=== PATIENT | female | born 2000 | race Caucasian/White ===

== ENCOUNTER 2023-08-01 21:01 | Emergency (ER) | payer BC, OTHER, SELFPAY ==
[2023-08-01 21:03] VITALS: BP 109/64
--- NOTE | 2023-08-01 22:19 | ED.GENMED ---
History of Present Illness
General
Chief Complaint: Abdominal Symptoms
Time Seen by Provider: 08/01/23 22:18
Travel History
Have you had any contact with someone who has COVID-19?: No
Do you have any symptoms of coronavirus? Fever > 100 degrees, chills, cough, shortness of breath, sore throat, loss of taste or smell, muscle aches, or headache?: No
History of Present Illness
History of Present Illness:
HPI: The patient has a history of gastroparesis diagnosed a few years ago as an outpatient at [facility]. She does not currently see an adult GI doctor and does not take anything for gastroparesis. Over the past couple of weeks, she has been having
nausea with vomiting. She has no constipation. She has chronic abdominal pain with any different today. She has an associated headache.
EXAM:
GENERAL: Well appearing in no distress
HEENT: Moist oral mucosa
CARDIOVASCULAR: No murmurs, normal heart rate and rhythm, No chest wall tenderness
PULMONARY: No respiratory distress, breath sounds are clear and equal
ABDOMEN: Soft with no peritoneal signs, no tenderness
NEUROLOGIC: Excellent strength all extremities, no coordination deficits
PSYCHIATRIC: Appropriate mental status, normal insight and judgement
EXTREMITIES: Nontender, no edema, moves all extremities equally
SKIN: No rash, no lesions
ED COURSE:
10:25 PM: I initially evaluated patient
NUMBER AND COMPLEXITY OF PROBLEMS ADDRESSED AT THE ENCOUNTER
� Chronic conditions affecting care: Mild autism, GERD, gastroparesis
� Acute Exacerbation and/or Progression of Chronic Illness: This is an acute exacerbation of chronic gastroparesis
� Differential Diagnosis includes: Exacerbation of gastroparesis, pancreatitis, hepatobiliary disease, GERD, anxiety
AMOUNT AND/OR COMPLEXITY OF DATA TO BE REVIEWED AND ANALYZED
� I performed an independent evaluation of and my interpretation is:
EKG:
CT:
X-rays:
Laboratory Studies: CBC including white count is normal, hCG is negative, CMP unremarkable
Other:
� Review of other/old records: The patient was hospitalized with pneumonia when she was a child
� Clinical information was obtained by an independent historian: I spoke to mother at bedside
� Prescriptions/Medications Considered but not given:
� Further testing considered but not performed: Considered CT imaging however the patient has no significant abdominal tenderness and the pain that she is experiencing is mild and chronic and unchanged from prior
RISK OF COMPLICATIONS AND/OR MORBIDITY OR MORTALITY OF PATIENT MANAGEMENT
� Social determinants of health affecting care: Lives at home
� Discussion with other providers: Contacted GI office to arrange close follow-up
� Escalation of care including admission/observation vs risk of discharge considered: The patient tells me she feels dehydrated. Will give IV fluids. The patient is on Vraylar and Zoloft. I did review the interactions with
Reglan however I feel that Reglan could help her. We agree would be reasonable to give a one-time dose in the ED along with the fluids. On reassessment, at 11:30 PM, the patient appears fairly comfortable.
Past History
Past History
ED Past Medical History: None
Phy Exam
Physical Exam
Physical Exam:
See HPI
Course
Orders/Labs/Results
Orders:
Orders
08/01/23 22:27
0.9% Sodium Chloride 1000 ml [Nss] 1,000 ml IV BOLUS
Diphenhydramine [Benadryl] 25 mg IV NOW STA
Metoclopramide [Reglan] 10 mg IV NOW STA
Test Result ONCE
08/01/23 22:31
Complete Blood Count/With Diff Urgent
Comprehensive Metabolic Panel Urgent
HCG, Serum Qualitative Screen Urgent
Lipase Urgent
Abnormal Lab Results
08/01/23
22:31
MCH 31.4 H pg
(27.0-31.0)
ALT 45 H U/L
(0-35)
Total Protein 8.5 H g/dl
(6.3-8.2)
Albumin 5.1 H g/dl
(3.5-5.0)
08/01/23 22:31
08/01/23 22:31
Vital Signs
Initial and Last Documented VS:
Initial Vital Signs
Temp Pulse Resp BP Pulse Ox
98.1 F 61 18 109/64 100
08/01/23 21:03 08/01/23 21:03 08/01/23 21:03 08/01/23 21:03 08/01/23 21:03
Last Documented Vital Signs
Temp Pulse Resp BP Pulse Ox
98.1 F 67 18 104/51 98
08/01/23 21:03 08/01/23 22:50 08/01/23 22:50 08/01/23 22:50 08/01/23 22:50
*Critical Care Note
Total Time (30-74mins, 75-104mins- exclusive of procedures): Not Applicable
ED Attending Note
-
Portions of this chart may have been created with voice recognition software.� Occasional wrong word or��sound alike� substitutions may have occurred due to the inherent limitations of voice recognition software.
Discharge Plan
Departure
Prescriptions:
No Action
omeprazole 20 MG capsule,delayed release(DR/EC)
20 mg PO DAILY
clindamycin HCl 300 MG capsule
1 cap PO TID Qty: 21 0RF
Rx Instructions:
Take one capsule three times per day for 7 days.
Referrals:
Jerrod Cabrera MD [Family Provider] -
Interventions
Interventions:
*Risk Screen - Suicide Last Done: 08/01/23 21:55
*General Assessment Last Done: 08/01/23 21:55
*Neglect/Abuse Screening Last Done: 08/01/23 21:55
*ED COVID-19 Vaccine History Last Done: 08/01/23 21:55
OB-Lnzepa-Xwkpqefasn Assessment Last Done: 08/01/23 21:55
[2023-08-01 22:31] VITALS: BMI 23.4
[2023-08-01] MEDS: REGLAN 10 MG IV (22:31)
[2023-08-01] MEDS: BENADRYL 25 MG IV (22:31)
[2023-08-01] MEDS: NSS 1000 IV (22:32)
[2023-08-01 22:50] VITALS: BP 104/51
[2023-08-01 22:52] LABS: % Basophils 0.1 % (0-2); % Eosinophils 0.6 % (0-6); % Immature Granulocytes 0.5 % (0-0.5); % Lymphocytes 33.5 % (20.5-51.1); % Monocytes 4.8 % (1.7-9.3); % Neutrophils 60.5 % (42.2-75.2); Absolute Eosinophils 0.1 10^3/uL (0-0.7); Absolute Lymphocytes 2.9 10^3/uL (1.2-3.4); Absolute Monocytes 0.4 10^3/uL (0.1-0.6); Absolute Neutrophils 5.3 10^3/uL (1.4-6.5); Hematocrit 37.9 % (37.0-47.0); Hemoglobin 13.2 g/dL (12.0-16.0); Mean Corp Hgb Conc. 34.8 g/dL (33.0-37.0); Mean Corpuscular Hgb 31.4 pg (27.0-31.0); Mean Corpuscular Volume 90.2 fL (81.0-99.0); Nucleated Red Blood Cells % 0 %; Platelet Count 311 10^3/uL (130-400); Red Cell Dist. Width 12.1 % (11.5-14.5); White Blood Cell Count 8.7 10^3/uL (4.8-10.8)
[2023-08-01 23:02] LABS: HCG, Serum Qualitative Screen Negative
[2023-08-01 23:06] LABS: ALT (SGPT) 45 U/L (0-35); AST (SGOT) 31 U/L (14-36); Albumin 5.1 g/dl (3.5-5.0); Alkaline Phosphatase 63 U/L (38-126); Blood Urea Nitrogen 8 mg/dl (7-17); Calcium 10.2 mg/dl (8.4-10.2); Carbon Dioxide 30 mmol/L (22-30); Chloride 102 mmol/L (98-107); Estimated Creatinine Clearance > 125 ml/min; Glucose 86 mg/dl (70-99); Lipase 59 U/L (23-300); Potassium 4.3 mmol/L (3.5-5.1); Sodium 137 mmol/L (135-145); Total Bilirubin 1.1 mg/dl (0.2-1.3); Total Protein 8.5 g/dl (6.3-8.2); eGFR > 60.00
== END 2023-08-02 00:10 | disposition home or self-care (01) ==
LOC: EMR 21:01
PROVIDERS: EMERGENCY PHYSICIAN Emergency Medicine; FAMILY PHYSICIAN Internal Medicine
DX: K31.84 Gastroparesis (principal); F84.0 Autistic disorder; K21.9 Gastro-esophageal reflux disease without esophagitis; G89.29 Other chronic pain
CPT/HCPCS: 99283; 96374; 96375; 96361; 80053; 83690; 84703; 85025

== ENCOUNTER 2024-03-22 17:40 | Emergency (ER) | payer BC, OTHER, SELFPAY ==
[2024-03-22 17:47] VITALS: BP 118/71
[2024-03-22 18:19] LABS: % Basophils 0.7 % (0-2); % Eosinophils 0.9 % (0-6); % Immature Granulocytes 0.3 % (0-0.5); % Lymphocytes 47.7 % (20.5-51.1); % Monocytes 6.6 % (1.7-9.3); % Neutrophils 43.8 % (42.2-75.2); Absolute Basophils 0.1 10^3/uL (0-0.2); Absolute Eosinophils 0.1 10^3/uL (0-0.7); Absolute Lymphocytes 3.3 10^3/uL (1.2-3.4); Absolute Monocytes 0.5 10^3/uL (0.1-0.6); Absolute Neutrophils 3.1 10^3/uL (1.4-6.5); Hematocrit 39.5 % (37.0-47.0); Hemoglobin 13.2 g/dL (12.0-16.0); Mean Corp Hgb Conc. 33.4 g/dL (33.0-37.0); Mean Corpuscular Hgb 30.7 pg (27.0-31.0); Mean Corpuscular Volume 91.9 fL (81.0-99.0); Mean Platelet Volume 9.6 fL (7.4-10.4); Nucleated Red Blood Cells % 0 %; Platelet Count 271 10^3/uL (130-400); Red Cell Dist. Width 12.8 % (11.5-14.5)
[2024-03-22 18:23] LABS: Urine Albumin Trace (Neg - Trace); Urine Bilirubin Negative (Negative); Urine Character Clear (Clear); Urine Color Yellow; Urine Glucose Negative (Negative); Urine Ketone Negative (Negative); Urine Leukocyte Negative (Negative); Urine Nitrite Negative (Negative); Urine Occult Blood Negative (Negative); Urine Specific Gravity 1.015 (<1.030); Urine Urobilinogen Negative (Neg - 1+)
[2024-03-22 18:27] LABS: HCG, Serum Qualitative Screen Negative
[2024-03-22 18:32] LABS: ALT (SGPT) 17 U/L (0-35); AST (SGOT) 22 U/L (14-36); Alkaline Phosphatase 72 U/L (38-126); Blood Urea Nitrogen 16 mg/dl (7-17); Calcium 9.8 mg/dl (8.4-10.2); Carbon Dioxide 25 mmol/L (22-30); Chloride 103 mmol/L (98-107); Glucose 87 mg/dl (70-99); Potassium 4.4 mmol/L (3.5-5.1); Sodium 142 mmol/L (135-145); Total Bilirubin 0.8 mg/dl (0.2-1.3); Total Protein 7.9 g/dl (6.3-8.2); eGFR > 60.00
[2024-03-22 19:48] VITALS: BP 101/62
--- NOTE | 2024-03-22 21:10 | ED.GENMED ---
History of Present Illness
General
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
Source: patient
Time Seen by Provider: 03/22/24 20:58
History of Present Illness
History of Present Illness:
23yoF with a history of gastroparesis, hypothyroidism, and anxiety presenting with her mother for evaluation of pelvic pain. Patient [facility] [place] She had immediate pain after the insertion with
nausea and vomiting so they removed the IUD about 30 minutes-1 hour after insertion. She has been having ongoing sharp pelvic pain since that time. She is worried because she saw a 'red chunk' removed with the IUD and she wants to make sure
everything is okay. The OBGYN will apparently not call her back so she decided to come to the ED. She also reports an increase in white vaginal discharge. She was checked for STDs 2 weeks ago and testing was negative. She denies any fevers or
dysuria.
Past History
Past History
ED Past Medical History: None
Phy Exam
General Physical Exam
General Presentation: well appearing and no apparent distress
General age: appears stated age
General Skin: warm and dry
General Habitus: normal
General Mental: alert
ENT Exam
ENT Exam: normocephalic
Pulmonary Exam
Pulmonary Exam: no respiratory distress
Gastrointestinal Exam
Gastrointestinal Exam: soft, non distended and other (+Mild tenderness to suprapubic and LLQ regions. No guarding or rebound.)
Genitourinary Exam Female
Exam Female: no bleeding, no CMT, vaginal discharge and other (Mild to moderate amount of thin white vaginal discharge. Cervix appears normal. No friability or bleeding noted. No CMT.)
Pillow Coma Scale
Eye Opening: Spontaneous
Verbal Response: Oriented
Motor Response: Obeys Commands
GCS Total Score: 15
Skin Exam
Skin Exam: normal color and warm/dry
Psychiatric Exam
Psychiatric Exam: normal mood/affect
Course
Orders/Labs/Results
Orders:
Orders
03/22/24 17:56
Test Result ONCE
03/22/24 18:05
Complete Blood Count/With Diff Urgent
Comprehensive Metabolic Panel Urgent
HCG, Serum Qualitative Screen Urgent
Urinalysis Reflex To Culture Urgent
Date Specimen was Collected: 03/22/24
Time Specimen was Collected: 17:56
03/22/24 21:17
Pelvis & Transvaginal US [US Pelvis W Transvag Combined] Urgent
Comment:
Reason For Exam: Pelvic pain after IUD insertion/removal
03/22/24 18:05
03/22/24 18:05
Vital Signs
Initial and Last Documented VS:
Initial Vital Signs
Temp Pulse Resp BP Pulse Ox
98.0 F 74 16 118/71 98
03/22/24 17:47 03/22/24 17:47 03/22/24 17:47 03/22/24 17:47 03/22/24 17:47
Last Documented Vital Signs
Temp Pulse Resp BP Pulse Ox
98.0 F 60 16 107/65 100
03/22/24 17:47 03/22/24 21:15 03/22/24 21:15 03/22/24 21:15 03/22/24 21:15
MDM/Problems Addressed
Differential Diagnosis Includes:
23yoF here with pelvic pain since having an IUD inserted on 03/11. IUD was removed within 1 hour of insertion due to pain. Also having some vaginal discharge. STD testing 2 weeks ago was reportedly negative. No fevers. VSS. She is well appearing in
no distress. No signs of peritonitis on abdominal exam. White vaginal discharge noted on pelvic exam. Cervix otherwise appears normal and there is no cervical motion tenderness to suggest pelvic inflammatory disease.
Initial ED plan: CBC, CMP, HCG, and UA obtained in triage. Labs unremarkable including normal white count. HCG negative. UA bland without signs of infection. Will obtain pelvic ultrasound to ensure there is no evidence of perforation.
*Critical Care Note
Total Time (30-74mins, 75-104mins- exclusive of procedures): Not Applicable
Update Note
Update Note:
TVUS is negative for acute findings. Patient was provided with reassurance. She was advised to f/u with OBGYN for outpatient reassessment. ED return precautions discussed. She expressed understanding and is agreeable to plan. She was discharged in
stable condition.
ED Attending Note
-
Portions of this chart may have been created with voice recognition software.� Occasional wrong word or��sound alike� substitutions may have occurred due to the inherent limitations of voice recognition software.
Discharge Plan
Departure
Patient Disposition: Home (Routine Discharge)
Date of Disposition: 03/22/24
Time of Disposition: 23:52
Patient with high blood pressure during this ER visit?: No
Discharge Problem:
Pelvic pain
Instructions: Pelvic Pain (DC)
Prescriptions:
No Action
omeprazole 20 MG capsule,delayed release(DR/EC)
20 mg PO DAILY
clindamycin HCl 300 MG capsule
1 cap PO TID Qty: 21 0RF
Rx Instructions:
Take one capsule three times per day for 7 days.
Referrals:
Jerrod Cabrera MD [Family Provider] -
Jael Soni MD [Active] -
Activity Restrictions/Additional Instructions:
Please call tomorrow to schedule a follow-up with OBGYN. Return to the ER with any new or worsening symptoms.
Interventions
Interventions:
*Risk Screen - Suicide Last Done: 03/22/24 17:47
*General Assessment Last Done: 03/22/24 21:11
*Neglect/Abuse Screening Last Done: 03/22/24 17:47
ED- Fall Risk Assessment Last Done: 03/22/24 21:11
*ED COVID-19 Vaccine History Last Done: 03/22/24 21:11
*Nursing Disposition Last Done: 03/22/24 23:57
ED-Female Genitourinary Assessment Last Done: 03/22/24 21:14
Discharge Date and Time
Discharge Date/Time: 03/22/24 23:58
Print Language: AUSTRIAN
[2024-03-22 21:11] VITALS: BMI 22.5
[2024-03-22 21:15] VITALS: BP 107/65
== END 2024-03-22 23:58 | disposition home or self-care (01) ==
LOC: EMR 17:40
PROVIDERS: Emergency Medicine; EMERGENCY PHYSICIAN Emergency Medicine; FAMILY PHYSICIAN Internal Medicine
DX: R10.2 Pelvic and perineal pain (principal); N89.8 Other specified noninflammatory disorders of vagina; E03.9 Hypothyroidism, unspecified
CPT/HCPCS: 99284; 76830; 76856; 80053; 81003; 84703; 85025

== ENCOUNTER 2024-10-07 09:24 | Emergency (ER) | payer BC, OTHER, SELFPAY ==
[2024-10-07] VITALS (8 sets, daily range): BP systolic 95–124; BP diastolic 70–92; BMI 21.8
--- NOTE | 2024-10-07 10:01 | ED.GENMED ---
History of Present Illness
General
Chief Complaint: Abdominal Pain
Source: patient and family
Exam Limitations: none
Time Seen by Provider: 10/07/24 09:35
Nursing documentation reviewed up to this point in time: agreed with
History of Present Illness
History of Present Illness:
24-year-old female with past medical history of bipolar PTSD gastroparesis presents to the ER for evaluation. Patient has been hospitalized at [facility] for anxiety and PTSD. She however has had abdominal pain intermittently for
the past 7 days and has had 2 episodes where she apparently vomited some blood. She was seen at [facility] yesterday sent there from [place]. While there she received fluids and had blood work but had no imaging. She was dx with UTI and is on
Macrobid. Prior to yesterday no recent antibiotics.
She reports in addition to that she has been constipated and yesterday took mag citrate and laxatives and also manually disimpacted herself. This morning she complains of now diarrhea nausea and abdominal pain. She denies epigastric burning. She
reports this does not feel like reflux.
She is a patient of GI here at [facility] for gastroparesis.
She is prescribed medical marijuana, her last use 1 week ago. She reports this pain something that she has never had. Her friend did mention to her the possibility of cannabinoid hyperemesis syndrome.
Past History
Past History
ED Past Medical History: None
Phy Exam
General Physical Exam
General Presentation: no apparent distress
General age: appears stated age
General Skin: warm and dry
General Habitus: normal
General Mental: alert
General Hydration: dry mucous membranes
Cardiovascular Exam
Cardiovascular Exam: regular rate/rhythm, no murmur and normal peripheral pulses
Pulmonary Exam
Pulmonary Exam: lungs clear and no respiratory distress
Gastrointestinal Exam
Gastrointestinal Exam: soft and other (Nonspecific tenderness + BS )
Neurological Exam
Neurological Exam: alert and oriented x3
Musculoskeletal Exam
Musculoskeletal Exam: full ROM
Skin Exam
Skin Exam: normal color and warm/dry
Psychiatric Exam
Psychiatric Exam: normal mood/affect
Course
Orders/Labs/Results
Orders:
Orders
10/07/24 09:55
Ketorolac [Toradol] 15 mg IV NOW STA
10/07/24 09:59
0.9% Sodium Chloride 1000 ml [Nss] 1,000 ml IV BOLUS
10/07/24 10:01
Dicyclomine HCl [Bentyl] 20 mg IM NOW STA
10/07/24 10:14
Complete Blood Count/With Diff Urgent
Comprehensive Metabolic Panel Urgent
HCG, Serum Qualitative Screen Urgent
Comment: ADD ON
Lipase Urgent
Urinalysis Reflex To Culture Urgent
Date Specimen was Collected: 10/07/24
Time Specimen was Collected: 10:04
Urine Microscopic Reflex Cult Urgent
Urine Culture Urgent
LAVON Source: U
Specimen Description:
Date Specimen was Collected: 10/07/24
Time Specimen was Collected: 10:04
10/07/24 10:38
Add On- LAB Urgent
Tests Added?: hcg quantitative
10/07/24 10:55
Ketorolac [Toradol] 15 mg IV NOW STA
10/07/24 10:59
CT Abd/pel W Iv And Oral Contr Urgent
Comment:
Reason For Exam: abd pain
Diphenhydramine [Benadryl] 25 mg IV NOW STA
Iohexol [Omnipaque] See Protocol PO NOW STA
Metoclopramide [Reglan] 10 mg IV NOW STA
10/07/24 11:06
Electrocardiogram (*1) Stat
Reason for Study: Other
Other Reason for Exam: chest pain
Cardiac Monitoring- Treatment ONCE
EKG- Treatment ONCE
Abnormal Lab Results
10/07/24
10:14
Chloride 109 H mmol/L
(98-107)
Carbon Dioxide 21 L mmol/L
(22-30)
Glucose 158 H mg/dl
(70-99)
Total Bilirubin 1.8 H mg/dl
(0.2-1.3)
Urine Ketones 3+ A
(Negative)
Leukocyte Esterase Rfl 1+ A
(Negative)
Urine Bacteria (Reflex) Many A
(Negative)
Urine Albumin (Reflex) 1+ A
(Neg - Trace)
10/07/24 10:14
10/07/24 10:14
Vital Signs
Initial and Last Documented VS:
Initial Vital Signs
Temp Pulse Resp BP Pulse Ox
97.5 F 71 16 95/80 100
10/07/24 09:27 10/07/24 09:27 10/07/24 09:27 10/07/24 09:27 10/07/24 09:27
Last Documented Vital Signs
Temp Pulse Resp BP Pulse Ox
97.5 F 70 25 124/78 99
10/07/24 09:27 10/07/24 15:45 10/07/24 15:45 10/07/24 13:00 10/07/24 12:30
MDM/Problems Addressed
Differential Diagnosis Includes:
Not limited to viral syndrome, gastroparesis, less likely appendicitis, colitis diverticulitis cannabinoid hyperemesis syndrome, UTI reflux
MDM/Problems Addressed:
As documented patient is a 24-year-old female with psychiatric history, PTSD depression anxiety presents for nausea vomiting she had diarrhea as well and abdominal pain. Patient was hospitalized at [place] however had vomiting and was seen at [facility] yesterday diagnosed with UTI. In addition patient reports he has been constipated and has taken laxatives and self disimpacted herself yesterday. She presents with abdominal pain nausea vomiting. She denies any fevers and is afebrile with
a normal white count nonspecific abdominal tenderness.
Patient was medicated with Bentyl for discomfort which did not relieve her symptoms are patient did have relief with Toradol. Patient was medicated with nausea medicine and given fluids. CAT scan was ordered initially with oral and IV contrast
however patient was not able to tolerate oral contrast and therefore CAT scan with IV was done only. No evidence of obstruction or free intraperitoneal air no gross evidence for bowel wall thickening no acute obvious appendicitis there is a small
amount of pelvic free fluid likely physiologic. There is incidental 5 mm cyst in the posterior lateral left kidney. Labs unremarkable
Patient has been able to drink small and of fluids here and a cracker. We did discuss the possibility of cannabinoid hyperemesis however this is not a definitive diagnosis. Patient last use a week ago.
She does have a chronic GI history and is followed by GI here at [facility] for gastroparesis. No acute findings on labs and she is stable for discharge home however I did review with mom and patient reports a close GI follow-up. I did contact GI
lead front desk agent who will speak with the physician to expedite appointment.
Patient is stable for discharge home.
*Radiology
Radiology exam reviewed: radiology read reviewed
*Pulse Oximetry
Patient hypoxic: no
*Critical Care Note
Total Time (30-74mins, 75-104mins- exclusive of procedures): Not Applicable
ED Attending Note
-
Portions of this chart may have been created with voice recognition software.� Occasional wrong word or��sound alike� substitutions may have occurred due to the inherent limitations of voice recognition software.
Discharge Plan
Departure
Patient Disposition: Home (Routine Discharge)
Date of Disposition: 10/07/24
Time of Disposition: 16:17
Patient with high blood pressure during this ER visit?: No
Condition: Fair
Covid-19: Not Applicable
Discharge Problem:
Abdominal pain, Nausea and vomiting
Instructions: Nausea and Vomiting, Adult (DC), Abdominal Pain
Prescriptions:
No Action
omeprazole 20 MG capsule,delayed release(DR/EC)
20 mg PO DAILY
clindamycin HCl 300 MG capsule
1 cap PO TID Qty: 21 0RF
Rx Instructions:
Take one capsule three times per day for 7 days.
Referrals:
Jerrod Cabrera MD [Family Provider] -
Sergio Hedrick MD [Active] -
Activity Restrictions/Additional Instructions:
As discussed please follow-up with your family doctor as well as GI. Clear fluids for the next 24 hours followed by bland solid foods. You may complete your antibiotics were previously prescribed for UTI.
In addition please have conversation with family doctor and/or GI as we did discuss the possibility of cannabinoid hyperemesis syndrome.
Your bilirubin was 1.8 which is slightly elevated had this rechecked by your family doctor or GI specialist
Return however to the if any worsening of symptoms.
Interventions
Interventions:
*Risk Screen - Suicide Last Done: 10/07/24 09:27
*General Assessment Last Done: 10/07/24 09:27
*Neglect/Abuse Screening Last Done: 10/07/24 09:27
*ED- Fall Risk Assessment Last Done: 10/07/24 09:38
ZQ-Ytiipg-Djyrcedbxe Assessment Last Done: 10/07/24 09:30
Discharge Date and Time
Print Language: KITTITIAN
[2024-10-07] MEDS: BENTYL 20 MG IM (10:05)
[2024-10-07] MEDS: NSS 1000 IV (10:07)
[2024-10-07 10:26] LABS: % Basophils 0.4 % (0-2); % Eosinophils 0.7 % (0-6); % Immature Granulocytes 0.3 % (0-0.5); % Lymphocytes 23.6 % (20.5-51.1); % Monocytes 4.3 % (1.7-9.3); % Neutrophils 70.7 % (42.2-75.2); Absolute Eosinophils 0.1 10^3/uL (0-0.7); Absolute Lymphocytes 1.8 10^3/uL (1.2-3.4); Absolute Monocytes 0.3 10^3/uL (0.1-0.6); Absolute Neutrophils 5.4 10^3/uL (1.4-6.5); Hemoglobin 13.5 g/dL (12.0-16.0); Mean Corp Hgb Conc. 33.8 g/dL (33.0-37.0); Mean Platelet Volume 10.1 fL (7.4-10.4); Nucleated Red Blood Cells % 0 %; Platelet Count 288 10^3/uL (130-400); Red Blood Cell Count 4.35 10^6/uL (4.20-5.40); Red Cell Dist. Width 12.5 % (11.5-14.5); White Blood Cell Count 7.6 10^3/uL (4.8-10.8)
[2024-10-07 10:39] LABS: ALT (SGPT) 18 U/L (0-35); AST (SGOT) 20 U/L (14-36); Albumin 4.4 g/dl (3.5-5.0); Alkaline Phosphatase 70 U/L (38-126); Blood Urea Nitrogen 13 mg/dl (7-17); Calcium 9.5 mg/dl (8.4-10.2); Carbon Dioxide 21 mmol/L (22-30); Chloride 109 mmol/L (98-107); Estimated Creatinine Clearance > 125 ml/min; Glucose 158 mg/dl (70-99); Lipase 65 U/L (23-300); Potassium 4.3 mmol/L (3.5-5.1); Sodium 140 mmol/L (135-145); Total Bilirubin 1.8 mg/dl (0.2-1.3); Total Protein 7.7 g/dl (6.3-8.2); eGFR > 60.00
[2024-10-07 10:43] LABS: Urine Albumin 1+ (Neg - Trace); Urine Bilirubin Negative (Negative); Urine Character Cloudy (Clear); Urine Color Yellow; Urine Glucose Negative (Negative); Urine Ketone 3+ (Negative); Urine Leukocyte 1+ (Negative); Urine Nitrite Negative (Negative); Urine Occult Blood Negative (Negative); Urine Specific Gravity 1.015 (<1.030); Urine Urobilinogen Negative (Neg - 1+)
[2024-10-07] MEDS: TORADOL 15 MG IV (10:57)
[2024-10-07 10:58] LABS: HCG, Serum Qualitative Screen Negative
[2024-10-07 11:05] LABS: Urine Bacteria Many (Negative); Urine Red Blood Cell 0-2 /HPF (0-2); Urine Squamous Cell 0-2 /LPF (Few); Urine White Cell 0-2 /HPF (0-5)
[2024-10-07] MEDS: REGLAN 10 MG IV (11:09)
[2024-10-07] MEDS: BENADRYL 25 MG IV (11:09)
[2024-10-07] MEDS: OMNIPAQUE 50 ML PO (11:35)
[2024-10-07 16:41] LABS: Glucose - Point of Care 105 mg/dl (70-99)
== END 2024-10-07 16:53 | disposition home or self-care (01) ==
LOC: EMR 09:24
PROVIDERS: Nurse Practitioner; EMERGENCY PHYSICIAN Emergency Medicine; FAMILY PHYSICIAN Internal Medicine
DX: R10.9 Unspecified abdominal pain (principal); K31.84 Gastroparesis; F31.9 Bipolar disorder, unspecified; F43.10 Post-traumatic stress disorder, unspecified; F41.9 Anxiety disorder, unspecified; K59.00 Constipation, unspecified; Z87.440 Personal history of urinary (tract) infections
CPT/HCPCS: 99284; 96374; 96375; 96376; 96361; 74177; 80053; 81003; 81015; 82962; 83690; 84703; 85025; 87045; 87046; 87086; 87427; 93005; Q9967

== ENCOUNTER 2025-05-11 12:33 | Emergency (ER) | payer BC, OTHER, SELFPAY ==
[2025-05-11 12:35] VITALS: BP 109/73
[2025-05-11 12:58] LABS: Hematocrit 38.9 % (37.0-47.0); Hemoglobin 13.1 g/dL (12.0-16.0); Mean Corp Hgb Conc. 33.7 g/dL (33.0-37.0); Mean Corpuscular Volume 91.5 fL (81.0-99.0); Nucleated Red Blood Cells % 0 %; Platelet Count 248 10^3/uL (130-400); Red Cell Dist. Width 13.6 % (11.5-14.5)
[2025-05-11 13:00] LABS: Urine Character Clear (Clear)
[2025-05-11 13:11] LABS: HCG, Serum Qualitative Screen Negative
[2025-05-11 13:14] LABS: ALT (SGPT) 20 U/L (0-35); AST (SGOT) 27 U/L (14-36); Albumin 5.1 g/dl (3.5-5.0); Alkaline Phosphatase 66 U/L (38-126); Blood Urea Nitrogen 13 mg/dl (7-17); Calcium 9.7 mg/dl (8.4-10.2); Carbon Dioxide 23 mmol/L (22-30); Chloride 104 mmol/L (98-107); Glucose 110 mg/dl (70-99); Potassium 4.0 mmol/L (3.5-5.1); Sodium 135 mmol/L (135-145); Total Protein 8.6 g/dl (6.3-8.2); eGFR > 60.00
[2025-05-11 13:16] LABS: Urine Red Blood Cell 0-2 /HPF (0-2); Urine White Cell 0-2 /HPF (0-5)
[2025-05-11 13:25] LABS: Troponin I < 0.012 ng/ml
[2025-05-11] MEDS: NSS 1000 IV (14:38)
[2025-05-11 15:47] VITALS: BP 103/84
[2025-05-11] MEDS: LR 1000 IV (15:54)
[2025-05-11] MEDS: TYLENOL 1000 MG PO (16:21)
[2025-05-11] MEDS: REGLAN 10 MG IV (16:45)
--- NOTE | 2025-05-11 16:55 | ED.GENMED ---
History of Present Illness
General
Chief Complaint: Fever
Time Seen by Provider: 05/11/25 14:07
History of Present Illness
History of Present Illness:
24-year-old female presents to the emergency department for evaluation of a myriad of complaints. She states she has been coughing for approximately 2 months has been treated with 2 courses of antibiotics and steroids without relief. Over the past
2 weeks she has felt chills and sweats and become increasingly nauseated. Arrives with intractable vomiting. Denies any headache or neck stiffness. No ill contacts at home. No recent international travel.
Past History
Past History
ED Past Medical History: None
Review of Systems
Review of Systems
Allergies reviewed?: Yes
All Other Systems: ROS reviewed and negative except as documented in HPI and ROS
Phy Exam
Physical Exam
Physical Exam:
GEN: Well appearing, NAD, WDWN
HEENT: Oral mucosa moist, no scleral icterus, oropharynx clear with no erythema, no meningitic signs
Cardiac: Tachycardic, regular
Lung: No respiratory distress, no tachypnea, lungs clear to auscultation
Abdomen: Soft, nontender
MSK: No gross deformity or injuries
Skin: Good color, no pallor or jaundice, no rashes
Neuro: AO x3, moves all extremities freely
Psych: Calm, cooperative
Course
Orders/Labs/Results
Orders:
Orders
05/11/25 12:38
Electrocardiogram (*1) Urgent
Reason for Study: Chest Pain
EKG- Treatment ONCE
05/11/25 12:39
Test Result ONCE
05/11/25 12:51
Complete Blood Count/With Diff Urgent
Comprehensive Metabolic Panel Urgent
HCG, Serum Qualitative Screen Urgent
Comment: Notify provider if positive test present
Monotest Urgent
Troponin I Urgent
Urinalysis Reflex To Culture Urgent
Date Specimen was Collected: 05/11/25
Time Specimen was Collected: 12:39
Urine Microscopic Reflex Cult Urgent
Urine Culture Urgent
ALVON Source: U
Specimen Description:
Date Specimen was Collected: 05/11/25
Time Specimen was Collected: 12:39
05/11/25 14:33
0.9% Sodium Chloride 1000 ml [Nss] 1,000 ml IV BOLUS
05/11/25 14:34
CR Chest - 2 Views Urgent
Comment:
Reason For Exam: cough
05/11/25 15:43
Lactated Ringers [Lr] 1,000 ml IV BOLUS
05/11/25 15:56
Acetaminophen [Tylenol] 1,000 mg PO NOW STA
05/11/25 16:40
Metoclopramide [Reglan] 10 mg IV NOW STA
Abnormal Lab Results
05/11/25
12:51
Absolute Lymphs (auto) 0.4 L 10^3/uL
(1.2-3.4)
Neutrophils % 83.7 H %
(42.2-75.2)
Lymphocytes % 6.7 L %
(20.5-51.1)
Glucose 110 H mg/dl
(70-99)
Total Bilirubin 1.5 H mg/dl
(0.2-1.3)
Total Protein 8.6 H g/dl
(6.3-8.2)
Albumin 5.1 H g/dl
(3.5-5.0)
Urine Ketones 3+ A
(Negative)
Urine Bacteria (Reflex) Many A
(Negative)
Urine Albumin (Reflex) 2+ A
(Neg - Trace)
Monoscreen Positive A
(Negative)
05/11/25 12:51
05/11/25 12:51
Vital Signs
Initial and Last Documented VS:
Initial Vital Signs
Temp Pulse Resp BP Pulse Ox
99.3 F 118 16 109/73 98
05/11/25 12:35 05/11/25 12:35 05/11/25 12:35 05/11/25 12:35 05/11/25 12:35
Last Documented Vital Signs
Temp Pulse Resp BP Pulse Ox
101.2 F H 90 18 103/84 99
05/11/25 15:55 05/11/25 15:47 05/11/25 16:05 05/11/25 15:47 05/11/25 16:55
MDM/Problems Addressed
MDM/Problems Addressed:
Patient's broad workup is grossly negative with exception of positive monotest. The mono does not clearly explain her coughing which may be postviral or reactive in the setting of her smoking. X-ray shows no evidence of infiltrate that would
warrant antibiotics at this time. She has no leukocytosis or transaminitis. Additionally labs are reassuring against occult malignancy. It remains possible with the past 2 weeks or worsening symptoms are caused by acute mono in which case she is
advised of supportive care. She does have history of gastroparesis which may be contributory to her worsening symptoms
*Pulse Oximetry
SaO2: 99
Oxygen Mode of Delivery: Room air
Patient hypoxic: no
*Critical Care Note
Total Time (30-74mins, 75-104mins- exclusive of procedures): Not Applicable
ED Attending Note
-
Portions of this chart may have been created with voice recognition software.� Occasional wrong word or��sound alike� substitutions may have occurred due to the inherent limitations of voice recognition software.
Discharge Plan
Departure
Patient Disposition: Home (Routine Discharge)
Date of Disposition: 05/11/25
Time of Disposition: 16:55
Patient with high blood pressure during this ER visit?: No
Discharge Problem:
Mononucleosis syndrome
Instructions: Mononucleosis
Prescriptions:
New
metoclopramide HCl 10 mg tablet
10 mg PO Q8H PRN (Reason: nausea and vomiting) Qty: 10 0RF
No Action
omeprazole 20 MG capsule,delayed release(DR/EC)
20 mg PO DAILY
clindamycin HCl 300 MG capsule
1 cap PO TID Qty: 21 0RF
Rx Instructions:
Take one capsule three times per day for 7 days.
Referrals:
UNKNOWN - PT NOT,INTERVIEWE [Family Provider]
Interventions
Interventions:
*General Assessment Last Done: 05/11/25 14:58
*Neglect/Abuse Screening Last Done: 05/11/25 12:35
*ED COVID-19 Vaccine History Last Done: 05/11/25 14:45
*ED Influenza Vaccine History Last Done: 05/11/25 14:45
[facility] Fall Risk Assessment Tool Last Done: 05/11/25 14:45
*Risk Screen - Suicide (C-SSRS) Last Done: 05/11/25 12:35
*Nursing Disposition Last Done: 05/11/25 17:04
ED- Neurological Assessment Last Done: 05/11/25 14:58
ED-Skin Assessment Last Done: 05/11/25 14:58
Discharge Date and Time
Discharge Date/Time: 05/11/25 17:10
Print Language: [id number]
== END 2025-05-11 17:10 | disposition home or self-care (01) ==
LOC: EMR 12:33
PROVIDERS: Emergency Medicine; EMERGENCY PHYSICIAN Emergency Medicine
DX: B27.90 Infectious mononucleosis, unspecified without complication (principal); K31.84 Gastroparesis
CPT/HCPCS: 96374; 96361; 99284; 71046; 80053; 81003; 81015; 84484; 84703; 85025; 86308; 87086; 93005